=== PATIENT | female | born 2000 | race Two or more races ===

== ENCOUNTER 2023-01-18 12:02 | Emergency (ER) | payer OTHER, SELFPAY ==
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
[2023-01-18 13:20] VITALS: BP 109/77; PULSE 78; RESP 18; O2SAT 97
== END 2023-01-18 14:07 | disposition home or self-care (01) ==
PROVIDERS: Emergency Provider Nurse Practitioner Family
DX: S50.02XA Contusion of left elbow, initial encounter (principal); S80.01XA Contusion of right knee, initial encounter; S80.02XA Contusion of left knee, initial encounter; V03.10XA Pedestrian on foot injured in collision with car, pick-up truck or van in traffic accident, initial encounter
CPT/HCPCS: 73080; 73564; 99284